=== PATIENT | male | born 1965 | race Caucasian/White ===

== ENCOUNTER 2020-05-05 18:27 | Emergency (ER) | payer OTHER ==
[~2020-05-05] VITALS: Ht 165.1 cm; Wt 90.3 kg
[~2020-05-05 18:27] MED LIST: BENAZEPRIL10 M1 PO; GLUCOTROL10 MG PO; METFORMIN HCL1000 MG PO; NOVOLOG MI10 U/0.11 SQ; REG10 PO; SIMVASTATIN20 M1 PO
[2020-05-05 18:37] VITALS: Ht 165.1 cm; Wt 90.3 kg
[2020-05-05] MEDS ORDERED: ACYCLOVIR400 MG PO (19:59)
[2020-05-05] MEDS ORDERED: PREDNISONE50 MG PO (19:59)
[2020-05-05 20:09] VITALS: BP 140/68
== END 2020-05-05 20:09 | disposition home or self-care (01) ==
LOC: ED 18:27
DX: G51.0 Bell's palsy (principal); E11.9 Type 2 diabetes mellitus without complications; Z88.8 Allergy status to other drugs, medicaments and biological substances
CPT/HCPCS: 82962; J7512